=== PATIENT | male | born 1940 | race Two or more races ===

== ENCOUNTER → 2021-06-16 | Outpatient (CLI) | payer MEDICARE, OTHER | END | disposition home or self-care (01) | LOC: XRAY 12:03 | PROVIDERS: ATTEND Internal Medicine Sleep Medicine | DX: J90 Pleural effusion, not elsewhere classified (principal); I51.7 Cardiomegaly | CPT/HCPCS: 71046 ==

== ENCOUNTER 2024-01-21 14:28 | Inpatient (IN) | payer MEDICARE, OTHER ==
[~2024-01-21] VITALS: Ht 177.8 cm; Wt 99.8 kg
[2024-01-21] MEDS ORDERED: IOHEXOL 350 100 ML INFUS..BTL ONE (15:08)
[2024-01-21] MEDS ORDERED: IV NORMAL SALINE 250 ML IV ONE (15:08)
[2024-01-21] MEDS ORDERED: SWABABLE VALVE TRANSFER SET EA MC ONE (15:08)
[2024-01-21 15:09] LABS: BASOPHILS % (AUTO) 0.4 % (0.0-2.0); EOSINOPHILS # (AUTO) 0.1 K/uL (0.0-0.7); EOSINOPHILS % (AUTO) 0.7 % (0.0-7.0); HEMATOCRIT 45.9 % (36.7-47.1); HEMOGLOBIN 15.2 g/dL (12.5-16.3); LYMPHOCYTES # (AUTO) 1.8 K/uL (0.8-4.8); LYMPHOCYTES % (AUTO) 18.9 % (20.5-51.5); MEAN CORPUSCULAR HEMOGLOBIN 29.1 uug (23.8-33.4); MEAN CORPUSCULAR HGB CONC 33 g/dL (32.5-36.3); MONOCYTES # (AUTO) 1.2 K/uL (0.1-1.30); MONOCYTES % (AUTO) 12.7 % (0.0-11.0); NEUTROPHILS # (AUTO) 6.3 K/uL (1.8-8.9); NEUTROPHILS % (AUTO) 67.3 % (38.5-71.5); PLATELET COUNT (AUTO) 272 K/uL (152-348); RED BLOOD CELL COUNT(AUTO) 5.21 MIL/uL (4.06-5.63); RED CELL DISTRIBUTION WIDTH 14.4 % (12.1-16.2); WHITE BLOOD COUNT (AUTO) 9.4 K/uL (3.6-10.2)
[2024-01-21 15:13] LABS: DIFFERENTIAL COMMENT 1
[2024-01-21 15:51] LABS: CALCIUM 8.9 mg/dL (8.5-10.1); CARBON DIOXIDE 23 mmol/L (21-32); CHLORIDE 105 mmol/L (98-107); CREATININE 2.2 mg/dL (0.6-1.3); GLUCOSE 118 mg/dL (74-106); SODIUM SERUM 141 mmol/L (136-145); UREA NITROGEN, BLOOD 38 mg/dL (7-18)
[2024-01-21] MEDS: ASPIRIN 325 MG TABLET PO ONE (16:00)
[2024-01-21] MEDS: ASPIRIN 81 MG TAB.CHEW PO ONE (16:38)
[2024-01-21] MEDS: IV NORMAL SALINE 1000 ML BAG IV ONE (16:38)
[2024-01-21] MEDS ORDERED: ASPIRIN 325 MG TABLET ONE (16:49)
[2024-01-21] MEDS ORDERED: ONDANSETRON 4 MG/2 ML VIAL IV PRN (20:45)
[2024-01-21] MEDS ORDERED: hydrALAZINE HCL 25 MG TABLET PO PRN (20:45)
[2024-01-21] MEDS ORDERED: TEMAZEPAM 15 MG CAPSULE PO PRN (20:45)
[2024-01-22] MEDS: ATORVASTATIN 40 MG TABLET PO SCH (00:47)
[2024-01-22] MEDS: ACETAMINOPHEN 325 MG TABLET PO PRN (00:47)
[2024-01-22] MEDS: DOCUSATE SODIUM 100 MG CAPSULE PO SCH (00:47)
[2024-01-22 01:00] VITALS: BP 142/72; TEMP 98.4; O2SAT 98
[2024-01-22 06:00] VITALS: BP 138/87; TEMP 97.7; O2SAT 95
[2024-01-22] MEDS ORDERED: TEMAZEPAM 7.5 MG CAPSULE PO PRN (06:15)
[2024-01-22] MEDS: PANTOPRAZOLE SODIUM 40 MG TABLET.DR PO SCH (06:19)
[2024-01-22 07:07] LABS: BASOPHILS % (AUTO) 0.4 % (0.0-2.0); EOSINOPHILS # (AUTO) 0.1 K/uL (0.0-0.7); EOSINOPHILS % (AUTO) 1.6 % (0.0-7.0); HEMATOCRIT 44.5 % (36.7-47.1); HEMOGLOBIN 15.1 g/dL (12.5-16.3); LYMPHOCYTES # (AUTO) 2.3 K/uL (0.8-4.8); MEAN CORPUSCULAR HEMOGLOBIN 29.9 uug (23.8-33.4); MEAN CORPUSCULAR HGB CONC 34 g/dL (32.5-36.3); MEAN CORPUSCULAR VOLUME 87.9 fL (73.0-96.2); MONOCYTES # (AUTO) 0.9 K/uL (0.1-1.30); NEUTROPHILS # (AUTO) 5.4 K/uL (1.8-8.9); PLATELET COUNT (AUTO) 247 K/uL (152-348); RED BLOOD CELL COUNT(AUTO) 5.07 MIL/uL (4.06-5.63); RED CELL DISTRIBUTION WIDTH 14.2 % (12.1-16.2); WHITE BLOOD COUNT (AUTO) 8.7 K/uL (3.6-10.2)
[2024-01-22 07:28] LABS: DIFFERENTIAL COMMENT 1
[2024-01-22 07:32] LABS: ALANINE AMINOTRANSFERASE 21 U/L (16-63); ALBUMIN 3.5 g/dL (3.4-5.0); ALKALINE PHOSPHATASE 107 U/L (50-136); ASPARTATE AMINOTRANSFERASE 13 U/L (15-37); BILIRUBIN,TOTAL 0.9 mg/dL (0.2-1.0); CALCIUM 8.7 mg/dL (8.5-10.1); CARBON DIOXIDE 26 mmol/L (21-32); CHLORIDE 105 mmol/L (98-107); CHOLESTEROL 185 mg/dL (<200); CREATININE 2.1 mg/dL (0.6-1.3); GLUCOSE 96 mg/dL (74-106); HDL CHOLESTEROL 60 mg/dL (40-60); MAGNESIUM 2.4 mg/dL (1.8-2.4); PHOSPHOROUS 3.9 mg/dL (2.5-4.9); SODIUM SERUM 139 mmol/L (136-145); TOTAL PROTEIN, SERUM 6.9 g/dL (6.4-8.2); TRIGLYCERIDES 128 MG/DL (30-150); UREA NITROGEN, BLOOD 33 mg/dL (7-18)
[2024-01-22 08:00] VITALS: BP 127/75; TEMP 98; O2SAT 96
[2024-01-22 08:59] LABS: THYROID STIMULATING HORMONE 12.425 mIU/mL (0.358-3.740)
[2024-01-22] MEDS: ASPIRIN EC 81 MG TABLET.DR PO SCH (09:43)
[2024-01-22] MEDS: ENOXAPARIN SODIUM 30 MG/0.3 ML DISP.SYRIN SUBCUT SCH (09:45)
[2024-01-22] MEDS ORDERED: ASPI81TA31 PO (11:10)
[2024-01-22] MEDS ORDERED: LATA2.5D15 EACHEYE (11:10)
[2024-01-22] MEDS ORDERED: AMIO100T4 PO (11:10)
[2024-01-22] MEDS ORDERED: AMLO10TA59 PO (11:10)
[2024-01-22] MEDS ORDERED: DORZ10DR10 EACHEYE (11:10)
[2024-01-22] MEDS ORDERED: CLON1TAB12 PO (11:10)
[2024-01-22 12:00] VITALS: BP 123/63; TEMP 97; O2SAT 96
[2024-01-22] MEDS: AMIODARONE HCL 200 MG TABLET PO SCH (12:28)
[2024-01-22 16:00] VITALS: BP 112/67; TEMP 98.7; O2SAT 97
[2024-01-22] MEDS: DORZOLAMIDE 2% OPHT DROP 10 ML BOTTLE EACHEYE SCH (17:53)
[2024-01-22] MEDS: CLONAZEPAM 1 MG TABLET PO SCH (20:29)
[2024-01-22] MEDS: LATANOPROST OPHT DROP 2.5 ML BOTTLE EACHEYE SCH (20:30)
[2024-01-22 20:45] VITALS: BP 113/61; TEMP 97.8; O2SAT 96
[2024-01-23 02:46] LABS: *BILIRUBIN,URIN NEGATIVE (NEGATIVE); *BLOOD, URINE NEGATIVE (NEGATIVE); *CLARITY,URINE CLEAR (CLEAR); *COLOR,URINE YELLOW (YELLOW); *KETONES,URINE NEGATIVE (NEGATIVE); *PROTEIN,URINE TRACE (NEGATIVE); *UROBILINOGEN,URINE 0.2 E.U./dl (NORMAL); LEUKOCYTE ESTERASE ,URINE NEGATIVE (NEGATIVE); NITRITE, URINE NEGATIVE (NEGATIVE); UGLUCOSE NEGATIVE (NEGATIVE)
[2024-01-23 02:50] LABS: BACTERIA,URINE NONE SEEN /HPF (NONE SEEN); MUCUS,URINE FEW /LPF (0-FEW); RBC,URINE NONE SEEN /HPF (0-3); SQUAMOUS EPITHELIAL CELL,UR NONE SEEN /HPF (NONE SEEN); WBC,URINE NONE SEEN /HPF (0-3)
[2024-01-23 02:51] LABS: *CREATININE,URINE 85.8 mg/dL (30-125); *URINE TOTAL PROTEIN RANDOM 41.9 mg/dL (<150/24HR)
[2024-01-23 03:58] VITALS: BP 119/67; TEMP 97.8; O2SAT 94
[2024-01-23 07:04] LABS: BASOPHILS % (AUTO) 0.3 % (0.0-2.0); EOSINOPHILS # (AUTO) 0.2 K/uL (0.0-0.7); EOSINOPHILS % (AUTO) 2.1 % (0.0-7.0); HEMATOCRIT 43.6 % (36.7-47.1); HEMOGLOBIN 14.8 g/dL (12.5-16.3); LYMPHOCYTES # (AUTO) 1.9 K/uL (0.8-4.8); LYMPHOCYTES % (AUTO) 22.4 % (20.5-51.5); MEAN CORPUSCULAR HEMOGLOBIN 29.6 uug (23.8-33.4); MEAN CORPUSCULAR HGB CONC 34 g/dL (32.5-36.3); MEAN CORPUSCULAR VOLUME 87.2 fL (73.0-96.2); MONOCYTES # (AUTO) 0.9 K/uL (0.1-1.30); MONOCYTES % (AUTO) 10.7 % (0.0-11.0); NEUTROPHILS # (AUTO) 5.5 K/uL (1.8-8.9); NEUTROPHILS % (AUTO) 64.5 % (38.5-71.5); PLATELET COUNT (AUTO) 227 K/uL (152-348); RED CELL DISTRIBUTION WIDTH 14.4 % (12.1-16.2); WHITE BLOOD COUNT (AUTO) 8.5 K/uL (3.6-10.2)
[2024-01-23 07:14] LABS: ALANINE AMINOTRANSFERASE 19 U/L (16-63); ALBUMIN 3.3 g/dL (3.4-5.0); ALKALINE PHOSPHATASE 100 U/L (50-136); ASPARTATE AMINOTRANSFERASE 10 U/L (15-37); BILIRUBIN,TOTAL 0.8 mg/dL (0.2-1.0); CALCIUM 8.5 mg/dL (8.5-10.1); CARBON DIOXIDE 25 mmol/L (21-32); CHLORIDE 107 mmol/L (98-107); CREATINE KINASE, TOTAL 42 U/L (39-308); CREATININE 1.8 mg/dL (0.6-1.3); GLUCOSE 97 mg/dL (74-106); MAGNESIUM 2.3 mg/dL (1.8-2.4); PHOSPHOROUS 3.7 mg/dL (2.5-4.9); POTASSIUM 3.9 mmol/L (3.5-5.1); SODIUM SERUM 143 mmol/L (136-145); TOTAL PROTEIN, SERUM 6.5 g/dL (6.4-8.2); UREA NITROGEN, BLOOD 28 mg/dL (7-18)
[2024-01-23 07:21] LABS: DIFFERENTIAL COMMENT 1
[2024-01-23 07:22] LABS: THYROID STIMULATING HORMONE 11.062 mIU/mL (0.358-3.740)
[2024-01-23 07:49] VITALS: BP 108/66; TEMP 97.6; O2SAT 94
[2024-01-23 16:00] VITALS: BP 141/67; TEMP 97.9; O2SAT 95
[2024-01-23] MEDS ORDERED: CYAN-28 PO (17:00)
[2024-01-23] MEDS ORDERED: ATOR40TA PO (17:00)
[2024-01-23] MEDS ORDERED: LEVO25TA9 PO (17:00)
[2024-01-24 10:06] LABS: PTH, INTACT 50 pg/mL (15-65)
[2024-01-24 13:10] LABS: A/G RATIO 1.1 (0.7-1.7); ALPHA-1-GLOBULIN 0.3 g/dL (0.0-0.4); ALPHA-2-GLOBULIN 0.7 g/dL (0.4-1.0); BETA GLOBULIN 0.9 g/dL (0.7-1.3); GAMMA GLOBULIN 0.8 g/dL (0.4-1.8); GLOBULIN, TOTAL 2.7 g/dL (2.2-3.9); M-SPIKE Not Observed g/dL (Not Observed); PROTEIN, TOTAL 5.7 g/dL (6.0-8.5)
== END 2024-01-23 18:20 | disposition home health service (06) | DRG 69 ==
LOC: ER 14:28 → TELE3 22:52
PROVIDERS: ADMIT Internal Medicine; ATTEND Internal Medicine
DX: G45.9 Transient cerebral ischemic attack, unspecified (principal); N17.0 Acute kidney failure with tubular necrosis; D68.59 Other primary thrombophilia; R29.810 Facial weakness; G83.24 Monoplegia of upper limb affecting left nondominant side; R29.701 NIHSS score 1; I25.10 Atherosclerotic heart disease of native coronary artery without angina pectoris; Z86.73 Personal history of transient ischemic attack (TIA), and cerebral infarction without residual deficits; E78.5 Hyperlipidemia, unspecified; F01.50 Vascular dementia, unspecified severity, without behavioral disturbance, psychotic disturbance, mood disturbance, and anxiety; I12.9 Hypertensive chronic kidney disease with stage 1 through stage 4 chronic kidney disease, or unspecified chronic kidney disease; N18.9 Chronic kidney disease, unspecified; E66.9 Obesity, unspecified; Z68.31 Body mass index [BMI] 31.0-31.9, adult; Z95.2 Presence of prosthetic heart valve; Z96.651 Presence of right artificial knee joint; H91.93 Unspecified hearing loss, bilateral; G89.29 Other chronic pain; M15.9 Polyosteoarthritis, unspecified; E53.8 Deficiency of other specified B group vitamins; E03.9 Hypothyroidism, unspecified; Z74.09 Other reduced mobility
CPT/HCPCS: 36415; 70450; 70496; 70551; 71045; 83735; 83921; 83970; 84100; 84155; 84165; 84300; 84443; 84484; 85025; 85730; 93005; 93307; G0378; J1650; Q9967